=== PATIENT | female | born 1940 | race Caucasian/White ===

== ENCOUNTER 2019-03-12 15:03 | Emergency (ER) | payer MEDICARE, BC ==
[2019-03-12] MEDS ORDERED: Morphine 4 MG/ML VIAL (1 ml) 4 MG/ML VIAL IV ONE (15:23)
[2019-03-12 15:38] LABS: ABS Basophils 0.1 10^3/ul (0-0.2); ABS Eosinophils 0.1 10^3/ul (0-0.6); ABS Lymphocytes 1.8 10^3/ul (1.0-4.8); ABS Monocytes 0.6 10^3/ul (0-0.8); ABS Neutrophils 5.4 10^3/ul (1.5-7.7); Eosinophil % 1.6 %; Hematocrit 41 % (35-47); Hemoglobin 14.2 g/dL (12.0-16.0); Mean Corpuscular HGB Conc 34 g/dL (31-36); Mean Corpuscular Hemoglobin 31 pg (27-31); Mean Corpuscular Volume 89 fL (80-97); Mean Platelet Volume 8.1 fL (7.4-10.4); Platelet Count 196 10^3/uL (150-450); Red Blood Count 4.65 10^6 /uL (3.70-4.87); Red Cell Distribution Width 13 % (10-15)
--- NOTE | 2019-03-12 15:39 | ED ---
Upper Extremity Pain - HPI Summary HPI Summary: 79 year old F presenting [facility] accompanied by spouse complains of left arm pain since tripping over a cord and falling earlier today 03/12/2019. Patient reports hitting her face and arm during the fall and denies LOC, numbness, and tingling. Patient denies WATTS. Patient is on a blood thinner and bp medication and notes Hx of [place] years ago. PSHx of cardiac stent placement in 2011 and aortic valve replacement in 2016. SHx of occasional light alcohol use. Pt reported taking Tylenol 500 mg at 1400 for pain relief earlier. The patient rates the pain 9/10 in severity. Symptoms aggravated by movement. Symptoms alleviated by nothing. Medications reviewed. Allergies noted. - History of Current Complaint Chief Complaint: EDExtremityUpper Stated Complaint: FALL Time Seen by Provider: 03/12/19 15:12 Hx Obtained From: Patient Hx Last Menstrual Period: n/a Mechanism Of Injury: Fall From A Standing Position - tripped over a cord Onset/Duration: Still Present Timing: Constant, Lasting Hours Severity Currently: Severe Pain Location: Arm - left Aggravating Factor(s): Movement Alleviating Factor(s): Nothing Associated Signs & Symptoms: Positive: Negative - no LOC after fall. Negative: Numbness/Tingling - Allergies/Home Medications Allergies/Adverse Reactions: Allergies Allergy/AdvReac Type Severity Reaction Status Date / Time erythromycin base Allergy Unknown Verified 11/21/17 15:36 Reaction Details latex Allergy Unknown Verified 11/21/17 15:36 Reaction Details Penicillins Allergy Unknown Verified 11/21/17 15:36 Reaction Details Home Medications: Home Medications Ascorbic Acid TAB* [Vitamin C TAB*] 500 mg PO DAILY 03/12/19 [History Confirmed 03/12/19] Aspirin EC TAB* [Ecotrin EC Low Dose 81 MG*] 81 mg PO DAILY 03/12/19 [History Confirmed 03/12/19] Atorvastatin* [Lipitor*] 20 mg PO DAILY 03/12/19 [History Confirmed 03/12/19] Esomeprazole(NF) [NexIUM(NF)] 40 mg PO DAILY 03/12/19 [History Confirmed ] Ibandronate TAB(NF) [Boniva(NF)] 150 mg PO MONTHLY 03/12/19 [History Confirmed 03/12/19] Multivitamins/Minerals TAB* [Theragran/minerals TAB*] 1 tab PO DAILY 03/12/19 [ History Confirmed 03/12/19] amLODIPine TAB* [Norvasc 5 mg TAB*] 10 mg PO DAILY 03/12/19 [History Confirmed 03/12/19] PMH/Surg Hx/FS Hx/Imm Hx Cardiovascular History: Reports: Hx Coronary Artery Disease - CARDIAC CATHERIZASTION X 2 WITH 1 STENT PLACEMENT, Hx Hypertension - BENIGN ESSENTCONTROL WITH MEDICATION, Hx Valvular Heart Disease - AORTIC VALVE DISORDER , CONGENTIAL Comment Only: Other Cardiovascular Problems/Disorders - VALVE ISSUES. HX 6 MONTH CHECK UPS Respiratory History: Denies: Hx Asthma GI History: Reports: Hx Gastroesophageal Reflux Disease - ON PRN MEDICATION, Hx Irritable Bowel - HX OF NO PROBLEM NOW Musculoskeletal History: Reports: Hx Arthritis - HIP Sensory History: Reports: Hx Contacts or Glasses - READING GLASSES Denies: Hx Hearing Aid Opthamlomology History: Reports: Hx Contacts or Glasses - READING GLASSES Psychiatric History: Reports: Hx Anxiety - ON MEDS - Surgical History Surgery Procedure, Year, and Place: 1995 CYSTOSCOPY, [facility]. 2011 CARDIAC CATHERIZATION WITH STENT, [facility] [place]. [address] C[address]ER[address]ATION, [facility] [place]. 2007 COLONOSCOPY, [facility] Hx Anesthesia Reactions: No Infectious Disease History: No Infectious Disease History: Denies: Traveled Outside the [place] in Last 30 Days - Family History Known Family History: Positive: Hypertension, Diabetes - Social History Alcohol Use: Rare Substance Use Type: Reports: None Smoking Status (MU): Former Smoker Type: Cigarettes Amount Used/How Often: 1 PPD Length of Time of Smoking/Using Tobacco: 41 YEARS Have You Smoked in the Last Year: No Review of Systems Negative: Fever Positive: Myalgia - positive - fall, left arm pain, face injury Negative: Headache, Numbness - or tingling, Syncope - no LOC All Other Systems Reviewed And Are Negative: Yes Physical Exam - Summary Physical Exam Summary: Constitutional: Well-developed, Well-nourished, Alert. (-) Distressed Skin: Warm, Dry HENT: Normocephalic; Atraumatic Eyes: Conjunctiva normal Neck: FROM. (-) JVD, (-) Stridor, (-) Tracheal deviation Cardio: Rhythm regular, rate normal, Heart sounds normal; Intact distal pulses; Radial pulses are 2+ and symmetric. (-) Murmur Pulmonary/Chest wall: Effort normal. (-) Respiratory distress, (-) Wheezes, (-) Rales Abd: Soft, (-) tenderness, (-) Distension, (-) Guarding, (-) Rebound Musculoskeletal: (-) Edema, tenderness proximal to elbow and shoulder, radial pulse 2+, mild tenderness in wrist Lymph: (-) Cervical adenopathy Neuro: Alert, Oriented x3 Psych: Mood and affect Normal Triage Information Reviewed: Yes Vital Signs On Initial Exam: Initial Vitals Temp Pulse Resp BP Pulse Ox 98.3 F 81 18 172/107 95 03/12/19 15:05 03/12/19 15:05 03/12/19 15:05 03/12/19 15:05 03/12/19 15:05 Vital Signs Reviewed: Yes Procedures - Sedation Patient Received Moderate/Deep Sedation with Procedure: No Diagnostics - Vital Signs Vital Signs Temp Pulse Resp BP Pulse Ox 03/12/19 15:05 98.3 F 81 18 172/107 95 - Laboratory Result Diagrams: 03/12/19 15:31 03/12/19 15:32 Lab Statement: Any lab studies that have been ordered have been reviewed, and results considered in the medical decision making process. - Radiology Wrist X-ray Radiology Interpretation Completed By: Radiologist Summary of Radiographic Findings: IMPRESSION: NO EVIDENCE FOR FRACTURE. IF THE PATIENT'S SYMPTOMS PERSIST RECOMMEND. FOLLOW-UP IMAGING. ED physician has reviewed this report. Shoulder X-ray Radiology Interpretation Completed By: Radiologist Summary of Radiographic Findings: IMPRESSION: SLIGHTLY DISPLACED FRACTURE OF THE SURGICAL NECK AND GREATER TUBEROSITY OF. THE HUMERUS. ED physician has reviewed this report. Elbow X-ray Radiology Interpretation Completed By: Radiologist Summary of Radiographic Findings: IMPRESSION: LIMITED STUDY, NO EVIDENCE FOR FRACTURE. ED physician has reviewed this report. Course/Dx - Course Course Of Treatment: Patient is here with a left humerus fracture following a fall. Patient did sustain an abrasion to her nose but did not lose consciousness and does not need a CT head are clinical guidelines. Patient had no other injuries. Patient was placed in a sling. Orthopedic surgery was called and they recommended outpatient follow-up. - Diagnoses Provider Diagnoses: Left humeral fracture Discharge ED - Sign-Out/Discharge Documenting (check all that apply): Patient Departure - discharge - Discharge Plan Condition: Stable Disposition: HOME Prescriptions: Hydrocodone/Acetaminophen [Hydrocodone-Acetamin 5-325 mg] 1 each PO Q8HR PRN # 20 tablet MDD 3 tablets PRN Reason: Pain - Severe Ondansetron ODT TAB* [Zofran 4 MG Odt TAB*] 4 mg PO Q8H PRN #12 tab.odt PRN Reason: Vomiting Patient Education Materials: Arm Fracture in Adults (ED) Referrals: Manuel Tesfaye MD [Primary Care Provider] - Edmond Griffin MD [Medical Doctor] - 3 Days Additional Instructions: Folllow up with in 3-5 days. Take medicine as prescribed. Come back to ED if you have numbness or tingling in the arms, severe pain that is unbearable, or any other concerning symptoms. - Billing Disposition and Condition Condition: STABLE Disposition: Home - Attestation Statements Document Initiated by Jason: Yes Documenting Scribe: JOELLE ELIAS Provider For Whom Jason is Documenting (Include Credential): LETY TORRES MD Scribe Attestation: JOELLE Leigh, scribed for LETY TORRES MD on 03/12/19 at 1831. Scribe Documentation Reviewed: Yes Provider Attestation: The documentation as recorded by the JOELLE alexander accurately reflects the service I personally performed and the decisions made by LETY tovar MD Status of Scribe Document: Viewed
[2019-03-12 15:56] LABS: INR 0.97 (0.82-1.09)
[2019-03-12 16:14] LABS: Albumin 4.1 g/dL (3.2-5.2); Albumin/Globulin Ratio 1.6 (1-3); BUN/Creatinine Ratio 36.5 (8-20); Calcium 9.1 mg/dL (8.6-10.3); EGFR African American 110.3 (>60); EGFR Non-African American 91.2 (>60); Globulin 2.5 g/dL (2-4); Total Bilirubin 0.5 mg/dL (0.2-1.0); Total Protein 6.6 g/dL (6.4-8.9)
[2019-03-12] MEDS ORDERED: HYDROcodone/ACETAMIN 5-325 MG* 1 TAB PO ONE (17:26)
[2019-03-12] MEDS ORDERED: Ondansetron ODT TAB* 4 MG SL ONE (18:19)
[2019-03-12 18:25] VITALS: BP 145/75
== END 2019-03-12 18:25 | disposition home or self-care (01) ==
LOC: ED 15:03
DX: S42.212A Unspecified displaced fracture of surgical neck of left humerus, initial encounter for closed fracture (principal); S42.252A Displaced fracture of greater tuberosity of left humerus, initial encounter for closed fracture; S00.31XA Abrasion of nose, initial encounter; W01.0XXA Fall on same level from slipping, tripping and stumbling without subsequent striking against object, initial encounter; Y92.9 Unspecified place or not applicable; I10 Essential (primary) hypertension; K21.9 Gastro-esophageal reflux disease without esophagitis; F41.9 Anxiety disorder, unspecified; Z95.5 Presence of coronary angioplasty implant and graft; Z79.01 Long term (current) use of anticoagulants; Z95.2 Presence of prosthetic heart valve; Z88.0 Allergy status to penicillin; Z88.1 Allergy status to other antibiotic agents; Z91.040 Latex allergy status; Z87.891 Personal history of nicotine dependence
CPT/HCPCS: 36415; 80053; 85025; 85610; 96374; 99283; A9270-GY; J2270